=== PATIENT | male | born 1935 | race American Indian/Alaskan Native ===

== ENCOUNTER 2017-01-08 22:12 | Inpatient (IN) | payer MEDICARE ==
[2017-01-08] MEDS ORDERED: Absorbable Gelatin Sponge Size 12-7 ONE ×2 (22:59→23:01)
[2017-01-09] MEDS ORDERED: Sodium Chloride 0.9% 1,000 ML IV ONE ×2 (00:33→01:40)
[2017-01-09 00:42] LABS: BASO % 0.4 % (0.0-2.0); EOS % 0.2 % (0.0-4.0); HEMATOCRIT 22.1 % (35.0-51.0); LYMPH # 1.3 K/uL (1.0-4.3); LYMPH % 18.2 % (20.0-40.0); MEAN CORPUSCULAR HEMOGLOBIN 24.4 pg (27.0-31.0); MEAN CORPUSCULAR HGB CONC 31.6 g/dL (33.0-37.0); MEAN PLATELET VOLUME 8.9 fL (7.2-11.7); MONO # 0.7 K/uL (0.0-0.8); MONO % 10.2 % (0.0-10.0); RED CELL DISTRIBUTION WIDTH 19.1 % (11.5-14.5); WHITE BLOOD COUNT 7.3 K/uL (4.8-10.8)
[2017-01-09 00:49] LABS: INR 1.3
[2017-01-09 00:54] LABS: ALKALINE PHOSPHATASE 67 U/L (38-126); ALT/SGPT 91 U/L (21-72); AST/SGOT 75 U/L (17-59); BILIRUBIN,TOTAL 0.8 mg/dL (0.2-1.3); BLOOD UREA NITROGEN 14 mg/dL (9-20); CALCIUM 7.3 mg/dl (8.6-10.4); CARBON DIOXIDE 28 mmol/L (22-30); CHLORIDE 104 mmol/L (98-107); GFR AFRICAN-AMERICAN > 60; GLUCOSE,RANDOM 107 mg/dL (75-110); POTASSIUM 4.1 mmol/L (3.6-5.2); SODIUM 137 mmol/L (132-148); TOTAL PROTEIN 5.9 g/dL (6.3-8.3)
--- NOTE | 2017-01-09 01:26 | C.PDOC ---
History Of Present Illness 81 year old male presents to the ER after he fell asleep on a kitchen stool, fell off the stool and hit the corner of a cabinet suffering a laceration to the right scalp area. Patient reports he has been bleeding moderately at home for a few hours [employer] and was unable to control the bleeding which prompted ER visit. Denies dizziness, weakness, or headache. Time Seen by Provider: 01/08/17 22:31 Chief Complaint (Nursing): Abnormal Skin Integrity History Per: Patient History/Exam Limitations: no limitations Onset/Duration Of Symptoms: Hrs Current Symptoms Are (Timing): Still Present Location Of Injury: Right: Head Quality Of Symptoms: Other (Bleeding) Recent travel outside of the [place]: No Past Medical History Reviewed: Historical Data, Nursing Documentation, Vital Signs Vital Signs: Last Vital Signs Temp 98.1 F 01/08/17 22:24 Pulse 85 01/09/17 01:52 Resp 18 01/09/17 01:52 BP 96/50 L 01/09/17 01:52 Pulse Ox 98 01/09/17 02:33 - Medical History PMH: No Chronic Diseases Surgical History: No Surg Hx Family History: States: Unknown Family Hx - Social History Hx Alcohol Use: No Hx Substance Use: No - Immunization History Hx Tetanus Toxoid Vaccination: No Hx Influenza Vaccination: No Hx Pneumococcal Vaccination: No Review Of Systems Skin: Positive for: Other (Laceration) Neurological: Negative for: Weakness, Headache, Dizziness Physical Exam - Physical Exam Appears: Non-toxic, No Acute Distress Skin: Warm, Dry Head: Normacephalic, No Tenderness (Facial bone), Laceration (8.5cm V shaped to right parietal area), No Other (Hematoma) Eye(s): bilateral: Normal Inspection, PERRL, EOMI Nose: Normal Oral Mucosa: Moist Neck: Normal, No Midline Cervical Tenderness, No Paracervical Tenderness, Supple Chest: Symmetrical Cardiovascular: Rhythm Regular Respiratory: Normal Breath Sounds, No Rales, No Rhonchi Extremity: Normal ROM (x4) Extremity: Bilateral: Atraumatic Neurological/Psych: Oriented x3, Normal Speech, Normal Motor, Normal Sensation Gait: Steady (came in ambulatory with spouse) ED Course And Treatment - Laboratory Results Result Diagrams: 01/09/17 00:39 01/09/17 00:39 O2 Sat by Pulse Oximetry: 98 (Room air) Pulse Ox Interpretation: Normal - CT Scan/US CT Head Other Rad Studies (CT/US): Read By Radiologist, Radiology Report Reviewed CT/US Interpretation: EXAM: CT Head Without Intravenous Contrast. CLINICAL HISTORY: 81 years old, male; Injury or trauma; Fall; Initial encounter; Laceration; Consciousness not specified;. Without residual foreign body; Scalp ; Additional info: Scalp laceration, head trauma. TECHNIQUE: Axial computed tomography images of the head/brain without intravenous contrast. All CT scans at. this facility use one or more dose reduction techniques, viz.: automated exposure control; ma/kV. adjustment per patient size (including targeted exams where dose is matched to indication; i.e. head);. or iterative reconstruction technique. Coronal and sagittal reformatted images were created and reviewed. COMPARISON: No relevant prior studies available. FINDINGS: Brain: Mild cerebral volume loss and decrease in attenuation of the periventricular white matter likely. due to chronic microangiopathic disease. The brain otherwise with normal myers-white matter. differentiation, without acute intracranial hemorrhage, edema or mass effect. Midline shift: No midline shift is present. Ventricles: Unremarkable. No ventriculomegaly. Bones/joints: No calvarial fractures are visualized. Soft tissues: Right frontal parietal scalp soft tissue swelling and laceration with surgical repair clips. noted. Sinuses: Unremarkable as visualized. No acute sinusitis. Mastoid air cells: Unremarkable as visualized. No mastoid effusion. Orbits: The orbits are normal. There is no evidence of retrobulbar hemorrhage. IMPRESSION: Mild to moderate soft tissue injury noted to the patient's right parietal scalp. No acute intracranial findings are seen. Chronic appearing changes as described. Progress Note: CT head ordered, results are negative. Wound was irrigated and stapled x7, pressure dressing applied x4 with no hemostasis; patient became pale , diaphoretic. Patient initially declined blood work but after several failed attempts to stop the bleeding patient agreed to blood work. Patient started on IV fluids, vitals remain stable; blood results showed a hemoglobin of 7. Discussed the results with patient and explained the importance of a blood transfusion at this time, patient agrees and gave signed consent for transfusion. Patient has a Hx of prior transfusions with no adverse reactions. Abbie removed from wound and lidocaine with epi used to anesthesize wound which was sutured x 8 with 3.0 nylon with control of bleeding. Laceration - Laceration Repair Right parietal scalp Wound Length (In cm): 8.5 Description Of Wound: Irregular (V shaped) Wound Examination: Irrigated With Saline Wound Closure: Acton (then removed b/c of lack of bleeding control) Suture Technique And Material Used: Interrupted (x 8), Nylon (3.0 ) Wound Complexity: Intermediate (bacitracin and pressure dressing applied) Disposition - Disposition Disposition: HOSPITALIZED Disposition Time: 02:30 Condition: STABLE Forms: [facility] (Citizen Of [place]) - Clinical Impression Clinical Impression: Anemia, Scalp laceration, Head trauma - PA / DIRECTOR OF CONSERVATION / Resident Statement MD/DO has reviewed & agrees with the documentation as recorded. - Scribe Statement The provider has reviewed the documentation as recorded by the Scribe Jose Cooper All medical record entries made by the Reynaibkhang were at my direction and personally dictated by me. I have reviewed the chart and agree that the record accurately reflects my personal performance of the history, physical exam, medical decision making, and the department course for this patient. I have also personally directed, reviewed, and agree with the discharge instructions and disposition.
[2017-01-09] MEDS ORDERED: Lidocaine 2% w Epi 1:100,000 Inj IJ ONE (01:32)
[2017-01-09] MEDS ORDERED: Bacitracin 500 Units/gm Oint Foilpak UD ONE (01:52)
[2017-01-09] MEDS ORDERED: Vitamins A & D Oint UD Foilpak ONE (03:21)
[2017-01-09 04:56] LABS: ALB/GLOB RATIO 0.8 (1.0-2.1)
--- NOTE | 2017-01-09 05:02 | CP.PCM.HP ---
<Beth Gallo - Last Filed: 01/09/17 05:07> History of Present Illness - History of Present Illness History of Present Illness: CC: uncontrolled bleeding HPI: 81M with PMH CHF, Hep C with cirrhosis and esophageal varices, and valvular disease who presents to the ED for uncontrollable bleeding from a scalp laceration. Patient says he was sitting in his kitchen on a barstool around 7:00 PM when he fell asleep and fell off the barstool, hitting his head on the corner of a cabinet on the way down. Patient says he was alone when this happened and he woke up as he was falling and hitting his head. Patient says he did not lose consciousness after that and remembers everthing that happened, including hearing his head hit the cabinet. Patient says he thought he just scraped his head and the bleeding would stop if he held pressure on it but he was still bleeding by the time his got home later in the evening so they decided to come to the ED. Patient says he has never fallen before except once when his dog pulled him over on the leash. Patient says he thinks it was caused by his BP meds which make him feel tired. 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 He also notes a cough which he also attributes to his BP medication. Patient says he has a recent history of easy bruising. He says he started the Brilinta in April of this year after having a stent placed for abnormal findings on catheterization. He denies history of NH. Patient admits to recent colitis that resolved, frequency 2/2 lasix, and LE swelling 2/2 CHF. He denies fever, chills, headache, changes in vision and hearing, sore throat, chest pain, palpitations, dyspnea, abdominal pain, n/v/d/c , blood in urine or stool, LE pain, rashes, and sick contacts. 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 Present on Admission - Present on Admission Any Indicators Present on Admission: No Review of Systems - Review of Systems All systems: reviewed and no additional remarkable complaints except (as per HPI ) Past Patient History - Past Social History Smoking Status: Never Smoked - PSYCHIATRIC Hx Substance Use: No Meds Allergies/Adverse Reactions: Allergies Allergy/AdvReac Type Severity Reaction Status Date / Time No Known Allergies Allergy Verified 01/08/17 22:26 Physical Exam - Constitutional Appears: Non-toxic, No Acute Distress - Head Exam Additional comments: 10 cm "L" shaped laceration on the right parietal area, sutured dried blood on head and in nair from head lac - Eye Exam Eye Exam: EOMI, Normal appearance, PERRL. absent: Nystagmus Additional comments: pale conjunctiva - ENT Exam ENT Exam: Mucous Membranes Moist - Neck Exam Neck exam: Negative for: Lymphadenopathy, Tenderness - Respiratory Exam Respiratory Exam: Clear to Auscultation Bilateral, NORMAL BREATHING PATTERN. absent: Accessory Muscle Use, Rales, Rhonchi, Wheezes, Respiratory Distress - Cardiovascular Exam Cardiovascular Exam: RRR, +S1, +S2, Systolic Murmur (harsh, heard best at the left sternal border ). absent: Bradycardia, Tachycardia, Diastolic murmur - GI/Abdominal Exam GI & Abdominal Exam: Hernia (umbilical ), Normal Bowel Sounds, Soft. absent: Distended, Tenderness - Extremities Exam Extremities exam: Positive for: pedal edema (2+ pitting ). Negative for: calf tenderness - Neurological Exam Neurological exam: Alert, CN II-XII Intact, Oriented x3 - Psychiatric Exam Psychiatric exam: Normal Affect, Normal Mood - Skin Skin Exam: Dry, Normal Color, Warm Results - Vital Signs Recent Vital Signs: Last Vital Signs Temp 98.7 F 01/09/17 04:37 Pulse 93 H 01/09/17 04:37 Resp 18 01/09/17 04:37 BP 86/43 L 01/09/17 04:37 Pulse Ox 100 01/09/17 04:37 - Labs Result Diagrams: 01/09/17 00:39 01/09/17 00:39 Labs: Laboratory Results - last 24 hr 01/09/17 01/09/17 01/09/17 00:39 00:39 00:39 WBC 7.3 RBC 2.87 L Hgb 7.0 L Hct 22.1 L MCV 77.0 L MCH 24.4 L MCHC 31.6 L RDW 19.1 H Plt Count 148 MPV 8.9 Neut % (Auto) 71.0 Lymph % (Auto) 18.2 L Pinal % (Auto) 10.2 H Eos % (Auto) 0.2 Baso % (Auto) 0.4 Neut # 5.2 Lymph # 1.3 Pinal # 0.7 Eos # 0.0 Baso # 0.0 PT 14.5 H INR 1.3 APTT 33 Sodium 137 Potassium 4.1 Chloride 104 Carbon Dioxide 28 Anion Gap 9 L BUN 14 Creatinine 0.7 L Est GFR ( Amer) > 60 Est GFR (Non-Af Amer) > 60 Random Glucose 107 Calcium 7.3 L Total Bilirubin 0.8 AST 75 H ALT 91 H Alkaline Phosphatase 67 Total Protein 5.9 L Albumin 2.6 L Globulin 3.3 Albumin/Globulin Ratio 0.8 L Blood Type Blood Type Confirm Antibody Screen 01/09/17 01/09/17 01:17 01:36 WBC RBC Hgb Hct MCV MCH MCHC RDW Plt Count MPV Neut % (Auto) Lymph % (Auto) Pinal % (Auto) Eos % (Auto) Baso % (Auto) Neut # Lymph # Pinal # Eos # Baso # PT INR APTT Sodium Potassium Chloride Carbon Dioxide Anion Gap BUN Creatinine Est GFR ( Amer) Est GFR (Non-Af Amer) Random Glucose Calcium Total Bilirubin AST ALT Alkaline Phosphatase Total Protein Albumin Globulin Albumin/Globulin Ratio Blood Type A POSITIVE Blood Type Confirm A POSITIVE Antibody Screen Negative Assessment & Plan - Assessment and Plan (Free Text) Plan: Anemia * f/u iron level (pretransfusion) * Transfused 1 U PRBCs * f/u H&H in AM * Call gericare aide teacher about whether brilinta can be held or not Head Laceration * Head CT showed no acute bleed * sutured and bandaged * dressing changes PRN Hypotension * hold lasix for now until BP normalized History of CHF * f/u echo * f/u CXR * f/u EKG Prophylactic measures * protonix * c/i VTE ppx - anemia * c/i to SCDs - LE edema <Balwinder Hill P - Last Filed: 01/09/17 06:46> Results - Vital Signs Recent Vital Signs: Last Vital Signs Temp 98.9 F 01/09/17 06:20 Pulse 84 01/09/17 06:20 Resp 18 01/09/17 06:20 BP 120/61 01/09/17 06:20 Pulse Ox 100 01/09/17 06:20 - Labs Result Diagrams: 01/09/17 00:39 01/09/17 00:39 Labs: Laboratory Results - last 24 hr 01/09/17 01/09/17 01/09/17 00:39 00:39 00:39 WBC 7.3 RBC 2.87 L Hgb 7.0 L Hct 22.1 L MCV 77.0 L MCH 24.4 L MCHC 31.6 L RDW 19.1 H Plt Count 148 MPV 8.9 Neut % (Auto) 71.0 Lymph % (Auto) 18.2 L Pinal % (Auto) 10.2 H Eos % (Auto) 0.2 Baso % (Auto) 0.4 Neut # 5.2 Lymph # 1.3 Pinal # 0.7 Eos # 0.0 Baso # 0.0 PT 14.5 H INR 1.3 APTT 33 Sodium 137 Potassium 4.1 Chloride 104 Carbon Dioxide 28 Anion Gap 9 L BUN 14 Creatinine 0.7 L Est GFR ( Amer) > 60 Est GFR (Non-Af Amer) > 60 Random Glucose 107 Calcium 7.3 L Iron TIBC % Saturation Total Bilirubin 0.8 AST 75 H ALT 91 H Alkaline Phosphatase 67 Total Protein 5.9 L Albumin 2.6 L Globulin 3.4 Albumin/Globulin Ratio 0.8 L Blood Type Blood Type Confirm Antibody Screen 01/09/17 01/09/17 01/09/17 01:17 01:36 03:30 WBC RBC Hgb Hct MCV MCH MCHC RDW Plt Count MPV Neut % (Auto) Lymph % (Auto) Pinal % (Auto) Eos % (Auto) Baso % (Auto) Neut # Lymph # Pinal # Eos # Baso # PT INR APTT Sodium Potassium Chloride Carbon Dioxide Anion Gap BUN Creatinine Est GFR ( Amer) Est GFR (Non-Af Amer) Random Glucose Calcium Iron 15 L TIBC 396 % Saturation 4 L Total Bilirubin AST ALT Alkaline Phosphatase Total Protein Albumin Globulin Albumin/Globulin Ratio Blood Type A POSITIVE Blood Type Confirm A POSITIVE Antibody Screen Negative Attending/Attestation - Attestation I have personally seen and examined this patient.: Yes I have fully participated in the care of the patient.: Yes I have reviewed all pertinent clinical information: Yes Notes (Text): Assessment Fall without LOC, about 4inches L shaped laceration, sutured after initial wendi due to continuous bleeding/oozing hemostasis achieved, patient is on Brilianta and asa Cardiac stent in April 2016, done after evaluation for CHF, , didn't need surg, CHF improved as per the patient H/o hepc, esophageal varices again found in April 2016, didn't need rx of varices. Microcytic anemia, need to check trend of hemoglobin suspect slow loss will check iron indices, transfuion. Plan Baseline CXR, EKG, echo Transfuse PRBC Check with patient's gericare aide teacher, gastroentrologist, pmd, confirm type of stent , ability of hold brilianta if needed, if need reval for gi blood loss. See orders for detail.
[2017-01-09 06:13] LABS: IRON 15 ug/dL (49-181)
--- NOTE | 2017-01-09 08:30 | CT ---
PROCEDURE: CT HEAD WITHOUT CONTRAST. HISTORY: scalp laceration, head trauma COMPARISON: None available. TECHNIQUE: Axial computed tomography images were obtained through the head/brain without intravenous contrast. Radiation dose: Total exam DLP = 1005.02 mGy-cm. This CT exam was performed using one or more of the following dose reduction techniques: Automated exposure control, adjustment of the mA and/or kV according to patient size, and/or use of iterative reconstruction technique. FINDINGS: HEMORRHAGE: No intracranial hemorrhage. BRAIN: No mass effect or edema. Mild diffuse age-appropriate atrophy and mild periventricular white matter lucency consistent with chronic microvascular ischemic change. VENTRICLES: Unremarkable. No hydrocephalus. CALVARIUM: No fracture. Scalp laceration over right vertex. Surgical cutaneous wendi noted. PARANASAL SINUSES: Unremarkable as visualized. No significant inflammatory changes. MASTOID AIR CELLS: Unremarkable as visualized. No inflammatory changes. OTHER FINDINGS: None. IMPRESSION: No intracranial mass, hemorrhage or evidence of acute infarct. Scalp laceration of right vertex. Preliminary interpretation of this examination was reported by [facility] at 11:30 p.m. on 01/08/2017. There is concurrence of this report with the preliminary interpretation.
--- NOTE | 2017-01-09 09:10 | RAD ---
HISTORY: CHF COMPARISON: Not available FINDINGS: LUNGS: No active pulmonary disease. PLEURA: No significant pleural effusion identified, no pneumothorax apparent. CARDIOVASCULAR: Normal. OSSEOUS STRUCTURES: No significant abnormalities. VISUALIZED UPPER ABDOMEN: Normal. OTHER FINDINGS: None. IMPRESSION: No active disease.
[2017-01-09 11:46] LABS: BASO % 0.1 % (0.0-2.0); EOS % 0.6 % (0.0-4.0); HEMATOCRIT 17.7 % (35.0-51.0); LYMPH # 0.6 K/uL (1.0-4.3); LYMPH % 22.4 % (20.0-40.0); MEAN CORPUSCULAR HEMOGLOBIN 25.6 pg (27.0-31.0); MEAN CORPUSCULAR HGB CONC 32.3 g/dL (33.0-37.0); MEAN PLATELET VOLUME 8.8 fL (7.2-11.7); MONO # 0.3 K/uL (0.0-0.8); MONO % 13.6 % (0.0-10.0); RED CELL DISTRIBUTION WIDTH 19.1 % (11.5-14.5)
[2017-01-09 11:50] LABS: MEAN CELL VOLUME 79.1 fL (80.0-94.0); WHITE BLOOD COUNT 2.6 K/uL (4.8-10.8)
--- NOTE | 2017-01-09 15:55 | CP.PCM.PN ---
<Radha Weber - Last Filed: 01/09/17 15:52> Subjective - Date & Time of Evaluation Date of Evaluation: 01/09/17 Time of Evaluation: 10:00 - Subjective Subjective: Medicine Note for Hospitalist, Dr. Kidd's Service Patient was seen and examined at bedside. Patient reports he feels much better today. Denied any dizziness or fatigue. hemoglobin on admission was 7.0. Patient transfused 1 unit this morning, post CBC was 5.7. Patient will be transfused an additional 2 units today - total 3 units. Denied fever, chills, headache, chest pain, SOB, abdominal pain, n/v/d/c, or urinary symptoms. Objective - Vital Signs/Intake and Output Vital Signs (last 24 hours): Temp Pulse Resp BP Pulse Ox 97.3 F L 79 20 99/60 L 99 01/09/17 15:39 01/09/17 15:39 01/09/17 15:39 01/09/17 15:39 01/09/17 15:39 Intake and Output: 01/09/17 01/09/17 06:59 18:59 Intake Total 920 Balance 920 - Medications Medications: Current Medications Aspirin (Aspirin Chewable) 81 mg PO DAILY [facility] Last Admin: 01/09/17 10:06 Dose: 81 mg Folic Acid (Folic Acid) 1 mg PO DAILY [facility] Last Admin: 01/09/17 10:06 Dose: 1 mg Pantoprazole Sodium (Protonix Inj) 40 mg IVP DAILY [facility] Last Admin: 01/09/17 10:06 Dose: 40 mg Ticagrelor (Brilinta) 90 mg PO DAILY [facility] Last Admin: 01/09/17 10:24 Dose: 90 mg - Labs Labs: 01/09/17 11:34 01/09/17 00:39 PT 14.5 SECONDS (9.7-12.2) H 01/09/17 00:39 INR 1.3 01/09/17 00:39 APTT 33 SECONDS (21-34) 01/09/17 00:39 - Constitutional Appears: No Acute Distress - Head Exam Head Exam: NORMAL INSPECTION, NORMOCEPHALIC - Eye Exam Eye Exam: EOMI, PERRL Pupil Exam: NORMAL ACCOMODATION - ENT Exam ENT Exam: Mucous Membranes Moist, Normal Exam - Neck Exam Neck Exam: Normal Inspection - Respiratory Exam Respiratory Exam: Clear to Ausculation Bilateral, NORMAL BREATHING PATTERN. absent: Decreased Breath Sounds, Wheezes - Cardiovascular Exam Cardiovascular Exam: REGULAR RHYTHM, RRR - GI/Abdominal Exam GI & Abdominal Exam: Soft, Normal Bowel Sounds. absent: Distended, Tenderness - Extremities Exam Extremities Exam: Pedal Edema (+1 BL LE) - Neurological Exam Neurological Exam: Alert, Awake, Oriented x3 Assessment and Plan - Assessment and Plan (Free Text) Plan: Symptomatic Chronic Anemia Secondary to Iron Deficiency Anemia and Head Laceration Hemoglobin of 7 on admission, transfused 1 unit this morning. Post CBC 5.7. Will receive 2 more transfusions - total 3 today Anemia workup - iron deficiency Anemia - Started IV Ferrlicit F/U AM CBC, stool occult Laceration stapled and sutured. Bandaged applied. Dressing changes PRN Head CT- showed no acute bleed Hypotension held lasix for now until BP normalized Low 100/60 - will continue to monitor Receiving blood transfusions and IV Ferrlicit History of CAD Stent placed 04/2016 - records retrieved from [facility] - stent placed, patient discharged with ASA and Brilinta Both ASA and Brilinta held 2/2 symptomatic anemia History of CHF CXR- No active disease f/u ECHO History of Portal Hypertension and esophageal varices with no bleeding EGD and Colonoscopy performed 04/2016 prior to PCI placement Prophylactic measures protonix c/i VTE ppx - anemia c/i to SCDs - LE edema PCP: Jacob Pisano GI: Sedaret Cardio: Gus Hay Dr., DO,PGY-1 <Kishore Servin - Last Filed: 01/10/17 17:42> Objective - Vital Signs/Intake and Output Vital Signs (last 24 hours): Temp Pulse Resp BP Pulse Ox 97.6 F 72 20 123/64 96 01/10/17 15:19 01/10/17 15:19 01/10/17 15:19 01/10/17 15:19 01/10/17 15:19 Intake and Output: 01/10/17 01/10/17 06:59 18:59 Intake Total 325 Balance 325 - Medications Medications: Current Medications Aspirin (Aspirin Chewable) 81 mg PO DAILY [facility] Last Admin: 01/09/17 10:06 Dose: 81 mg Ferric Sodium Gluconate Complex (Ferrlecit) 125 mg IVPB DAILY [facility] Stop: 01/15/17 10:01 Last Admin: 01/10/17 10:22 Dose: 125 mg Folic Acid (Folic Acid) 1 mg PO DAILY [facility] Last Admin: 01/10/17 10:22 Dose: 1 mg Metoprolol Tartrate (Lopressor) 25 mg PO BID [facility] Pantoprazole Sodium (Protonix Inj) 40 mg IVP BID [facility] Phytonadione (Vitamin K Inj) 10 mg SC ONCE ONE Stop: 01/11/17 06:01 Sucralfate (Carafate Oral Susp) 1 gm PO [facility] IBAN Ticagrelor (Brilinta) 90 mg PO DAILY [facility] Last Admin: 01/09/17 10:24 Dose: 90 mg - Labs Labs: 01/10/17 16:52 01/10/17 07:32 PT 14.1 SECONDS (9.7-12.2) H 01/10/17 11:19 INR 1.2 01/10/17 11:19 APTT 31 SECONDS (21-34) 01/10/17 11:19 Attending/Attestation - Attestation I have personally seen and examined this patient.: Yes I have fully participated in the care of the patient.: Yes I have reviewed all pertinent clinical information, including history, physical exam and plan: Yes
[2017-01-09 21:47] LABS: BASO % 0.4 % (0.0-2.0); HEMATOCRIT 19.8 % (35.0-51.0); LYMPH # 0.8 K/uL (1.0-4.3); LYMPH % 22.8 % (20.0-40.0); MEAN CELL VOLUME 79.2 fL (80.0-94.0); MEAN CORPUSCULAR HEMOGLOBIN 25.2 pg (27.0-31.0); MEAN CORPUSCULAR HGB CONC 31.8 g/dL (33.0-37.0); MEAN PLATELET VOLUME 8.6 fL (7.2-11.7); MONO # 0.4 K/uL (0.0-0.8); MONO % 12.7 % (0.0-10.0); NRBC % 0.1 % (0.0-2.0); RED CELL DISTRIBUTION WIDTH 18.2 % (11.5-14.5); WHITE BLOOD COUNT 3.5 K/uL (4.8-10.8)
[2017-01-09 21:59] LABS: ALKALINE PHOSPHATASE 50 U/L (38-126); ALT/SGPT 73 U/L (21-72); AST/SGOT 64 U/L (17-59); BILIRUBIN,TOTAL 0.8 mg/dL (0.2-1.3); BLOOD UREA NITROGEN 14 mg/dL (9-20); CALCIUM 6.9 mg/dl (8.6-10.4); CARBON DIOXIDE 27 mmol/L (22-30); CHLORIDE 106 mmol/L (98-107); GFR AFRICAN-AMERICAN > 60; GLUCOSE,RANDOM 130 mg/dL (75-110); SODIUM 137 mmol/L (132-148); TOTAL PROTEIN 4.3 g/dL (6.3-8.3)
--- NOTE | 2017-01-09 23:12 | CARD ---
APPROVED REPORT EKG Measurement Heart [id number] <Conclusion> Normal sinus rhythm Nonspecific ST abnormality Prolonged QT Abnormal ECG
--- NOTE | 2017-01-10 07:19 | CP.PCM.PN ---
<Radha Weber - Last Filed: 01/10/17 13:22> Subjective - Date & Time of Evaluation Date of Evaluation: 01/10/17 Time of Evaluation: 10:00 - Subjective Subjective: Medicine Note for Hospitalist, Dr. Kidd's Service Patient was seen and examined at bedside. Patient has no acute complaints. He denied any hemoptysis and melena. Denied fever, chills, headache, chest pain, SOB, abdominal pain, n/v/d/c, or urinary symptoms. Objective - Vital Signs/Intake and Output Vital Signs (last 24 hours): Temp Pulse Resp BP Pulse Ox 97.9 F 82 20 119/70 98 01/09/17 23:40 01/10/17 01:00 01/09/17 23:40 01/09/17 23:40 01/09/17 23:40 Intake and Output: 01/10/17 01/10/17 06:59 18:59 Intake Total 325 Balance 325 - Medications Medications: Current Medications Aspirin (Aspirin Chewable) 81 mg PO DAILY [facility] Last Admin: 01/09/17 10:06 Dose: 81 mg Ferric Sodium Gluconate Complex (Ferrlecit) 125 mg IVPB DAILY [facility] Stop: 01/15/17 10:01 Folic Acid (Folic Acid) 1 mg PO DAILY [facility] Last Admin: 01/09/17 10:06 Dose: 1 mg Pantoprazole Sodium (Protonix Inj) 40 mg IVP DAILY [facility] Last Admin: 01/09/17 10:06 Dose: 40 mg Ticagrelor (Brilinta) 90 mg PO DAILY [facility] Last Admin: 01/09/17 10:24 Dose: 90 mg - Labs Labs: 01/09/17 21:40 01/09/17 21:40 PT 14.5 SECONDS (9.7-12.2) H 01/09/17 00:39 INR 1.3 01/09/17 00:39 APTT 33 SECONDS (21-34) 01/09/17 00:39 - Additional Findings Additional findings: - Constitutional Appears: No Acute Distress - Head Exam Head Exam: NORMAL INSPECTION, NORMOCEPHALIC - Eye Exam Eye Exam: EOMI, PERRL Pupil Exam: NORMAL ACCOMODATION - ENT Exam ENT Exam: Mucous Membranes Moist, Normal Exam - Neck Exam Neck Exam: Normal Inspection - Respiratory Exam Respiratory Exam: Clear to Ausculation Bilateral, NORMAL BREATHING PATTERN. absent: Decreased Breath Sounds, Wheezes - Cardiovascular Exam Cardiovascular Exam: REGULAR RHYTHM, RRR - GI/Abdominal Exam GI & Abdominal Exam: Soft, Normal Bowel Sounds. absent: Distended, Tenderness - Extremities Exam Extremities Exam: Pedal Edema (+1 BL LE) - Neurological Exam Neurological Exam: Alert, Awake, Oriented x3 Assessment and Plan - Assessment and Plan (Free Text) Plan: Symptomatic Chronic Anemia Secondary to Iron Deficiency Anemia and Head Laceration Laceration stapled and sutured. Bandaged applied. Dressing changes PRN Head CT- showed no acute bleed Hemoglobin of 7 on admission, transfused 1 unit this morning. Post CBC 5.7. Will receive 2 more transfusions - total 3 today Anemia workup - iron deficiency Anemia - Started IV Ferrlicit Stool occult - positive, GI Consulted - Dr. Byrnes - help appreciated - plan for EGD tomorrow - NPO past midnight - Vitamin K doses x 2 will be given F/U afternoon CBC - if need be will be transfused History of Portal Hypertension and esophageal varices with no bleeding EGD and Colonoscopy performed 04/2016 prior to PCI placement Beats of VTACH Pt had 25 beats of VTACH last night, ELISEO negative Cardiology consulted - Dr. Ortiz - help appreciated - recommended to continue with ASA and plavix after DC - patient is to follow up with his ironer machine from [facility] Started patient on Metoprolol 25mg PO BID (home dose is 50mg PO daily) Hypotension Starting to normalize-will continue to monitor Receiving blood transfusions and IV Ferrlicit History of CAD Stent placed 04/2016 - records retrieved from [facility] - stent placed, patient discharged with ASA and Brilinta Both ASA and Brilinta held 2/2 symptomatic anemia History of CHF CXR- No active disease f/u ECHO Prophylactic measures protonix IVP BID Currently on FLD c/i VTE ppx - BOTH HELD due to Anemia, + FOBT c/i to SCDs - LE edema PCP: Jacob Pisano GI: [place] Cardio: Gus Hay Dr., DO,PGY-1 <Kishore Servin - Last Filed: 01/10/17 17:43> Objective - Vital Signs/Intake and Output Vital Signs (last 24 hours): Temp Pulse Resp BP Pulse Ox 97.6 F 72 20 123/64 96 01/10/17 15:19 01/10/17 15:19 01/10/17 15:19 01/10/17 15:19 01/10/17 15:19 Intake and Output: 01/10/17 01/10/17 06:59 18:59 Intake Total 325 Balance 325 - Medications Medications: Current Medications Aspirin (Aspirin Chewable) 81 mg PO DAILY [facility] Last Admin: 01/09/17 10:06 Dose: 81 mg Ferric Sodium Gluconate Complex (Ferrlecit) 125 mg IVPB DAILY [facility] Stop: 01/15/17 10:01 Last Admin: 01/10/17 10:22 Dose: 125 mg Folic Acid (Folic Acid) 1 mg PO DAILY [facility] Last Admin: 01/10/17 10:22 Dose: 1 mg Metoprolol Tartrate (Lopressor) 25 mg PO BID [facility] Pantoprazole Sodium (Protonix Inj) 40 mg IVP BID [facility] Phytonadione (Vitamin K Inj) 10 mg SC ONCE ONE Stop: 01/11/17 06:01 Sucralfate (Carafate Oral Susp) 1 gm PO ACS [facility] Ticagrelor (Brilinta) 90 mg PO DAILY [facility] Last Admin: 01/09/17 10:24 Dose: 90 mg - Labs Labs: 01/10/17 16:52 01/10/17 07:32 PT 14.1 SECONDS (9.7-12.2) H 01/10/17 11:19 INR 1.2 01/10/17 11:19 APTT 31 SECONDS (21-34) 01/10/17 11:19 Attending/Attestation - Attestation I have personally seen and examined this patient.: Yes I have fully participated in the care of the patient.: Yes I have reviewed all pertinent clinical information, including history, physical exam and plan: Yes Notes (Text): seen and examined with the residnet plan discussed with the resident spoke to his ironer machine.His recommendation appreciated EGD tomorrow 01/10/17 17:42
[2017-01-10 07:32] LABS: RBC URINE < 1 /hpf (0-3); URINE BACTERIA OCC (<OCC); URINE BILIRUBIN NEGATIVE (NEGATIVE); URINE BLOOD NEGATIVE (NEGATIVE); URINE COLOR Yellow (YELLOW); URINE GLUCOSE (UA) NORMAL (Normal); URINE KETONE NEGATIVE (NEGATIVE); URINE LEUKOCYTE ESTERASE 3+ Leu/uL (Negative); URINE PROTEIN NEGATIVE (NEGATIVE); WBC URINE 29 /hpf (0-5)
[2017-01-10 07:55] LABS: BASO % 0.6 % (0.0-2.0); EOS % 0.9 % (0.0-4.0); HEMATOCRIT 22.4 % (35.0-51.0); LYMPH # 0.8 K/uL (1.0-4.3); LYMPH % 20.8 % (20.0-40.0); MEAN CELL VOLUME 79.5 fL (80.0-94.0); MEAN CORPUSCULAR HEMOGLOBIN 25.3 pg (27.0-31.0); MEAN CORPUSCULAR HGB CONC 31.8 g/dL (33.0-37.0); MEAN PLATELET VOLUME 8.6 fL (7.2-11.7); MONO # 0.5 K/uL (0.0-0.8); MONO % 13.9 % (0.0-10.0); NRBC % 0.1 % (0.0-2.0); RED CELL DISTRIBUTION WIDTH 17.7 % (11.5-14.5); WHITE BLOOD COUNT 3.6 K/uL (4.8-10.8)
[2017-01-10 08:36] LABS: ALKALINE PHOSPHATASE 52 U/L (38-126); ALT/SGPT 75 U/L (21-72); AST/SGOT 66 U/L (17-59); BILIRUBIN,TOTAL 1.1 mg/dL (0.2-1.3); BLOOD UREA NITROGEN 14 mg/dL (9-20); CALCIUM 6.8 mg/dl (8.6-10.4); CARBON DIOXIDE 26 mmol/L (22-30); CHLORIDE 108 mmol/L (98-107); GFR AFRICAN-AMERICAN > 60; GLUCOSE,RANDOM 83 mg/dL (75-110); MAGNESIUM 1.6 mg/dL (1.6-2.3); PHOSPHOROUS 2.6 mg/dL (2.5-4.5); SODIUM 136 mmol/L (132-148); TOTAL PROTEIN 4.3 g/dL (6.3-8.3)
[2017-01-10] MEDS: Ferric Sodium Gluconat Complex 62.5 mg/5 ml Vial IVPB SCH (10:22)
[2017-01-10] MEDS ORDERED: Phytonadione 10 mg/ml Inj (Adult) SC ONE ×2 (10:45→12:30)
[2017-01-10 11:47] LABS: INR 1.2
[2017-01-10 12:16] LABS: CARCINOEMBRYONIC ANTIGEN 2.2 ng/mL (0-3.0)
[2017-01-10 12:20] LABS: CA 19-9 16.7 U/mL (0-37)
[2017-01-10 16:59] LABS: HEMATOCRIT 22.6 % (35.0-51.0); MEAN CORPUSCULAR HEMOGLOBIN 25.9 pg (27.0-31.0); MEAN CORPUSCULAR HGB CONC 32.8 g/dL (33.0-37.0); MEAN PLATELET VOLUME 8.3 fL (7.2-11.7); RED CELL DISTRIBUTION WIDTH 18.3 % (11.5-14.5); WHITE BLOOD COUNT 3.6 K/uL (4.8-10.8)
--- NOTE | 2017-01-10 21:45 | CARD ---
APPROVED REPORT EKG Measurement Heart [id number] <Conclusion> Sinus rhythm with occasional premature ventricular complexes Otherwise normal ECG
[2017-01-10] MEDS: Sucralfate 1 gm/10 ml Oral Susp UD PO SCH (22:00)
--- NOTE | 2017-01-10 23:13 | CARD ---
APPROVED REPORT EXAM: Two-dimensional and M-mode echocardiogram with Doppler and color Doppler. Other Information Quality : GoodRhythm : INDICATION Congestive Heart Failure HEP.C WITH CIRRHOSIS 2D DIMENSIONS IVSd1.1 (0.7-1.1cm)LVDd5.3 (3.9-5.9cm) LVOT Diameter2.7 (1.8-2.4cm)PWd1.2 (0.7-1.1cm) LVDs3.0 (2.5-4.0cm)FS (%) 42.5 % LVEF (%)73.2 (>50%) M-Mode DIMENSIONS Left Atrium (MM)4.95 (2.5-4.0cm)Aortic Root3.85 (2.2-3.7cm) Aortic Cusp Exc.1.37 (1.5-2.0cm) Aortic Valve AoV Peak Cmddicub768.3cm/sAoV VTI91.3cmAO Peak GR.76mmHg LVOT Peak Fkdukxfg38.6cm/sLVOT VTI21.06cmAO Mean GR.48mmHg CAMILLA (VMAX)1.74zj6XGS (VTI)1.33cm2 Mitral Valve MV E Fgneoixa34.0cm/sMV A Wmpdlfqt90.4cm/sE/A ratio1.0 TDI E/Lateral E'0.0E/Medial E'0.0 Tricuspid Valve TR Peak Pzlauhkl208as/sTR Peak Gr.78aaEqYNFD62abSg LEFT VENTRICLE The left ventricle is normal size. There is borderline to mild concentric left ventricular hypertrophy. Left ventricle systolic function is normal. The Ejection Fraction is >70%. There is normal LV segmental wall motion. The left ventricular diastolic function is normal. RIGHT VENTRICLE The right ventricle is normal size. There is normal right ventricular wall thickness. The right ventricular systolic function is normal. ATRIA The left atrium is moderately dilated. The right atrium size is normal. The interatrial septum is intact with no evidence for an atrial septal defect. AORTIC VALVE The aortic valve is mildly calcified and displays decreased opening. There is trace aortic regurgitation. There is moderate valvular aortic stenosis. Calculated aortic valve area is 1.33 cm2 with maximum pressure gradient of 76 mmHg and mean pressure gradient of 48 mmHg. MITRAL VALVE The mitral valve is normal in structure. There is no evidence of mitral valve prolapse. There is no mitral valve stenosis. Mitral regurgitation is mild. TRICUSPID VALVE The tricuspid valve is normal in structure. There is moderate tricuspid regurgitation. Right ventricular systolic pressure is estimated at 47 mmHg. There is mild-moderate pulmonary hypertension. PULMONIC VALVE The pulmonic valve is not well visualized. There is trace pulmonic valvular regurgitation. GREAT VESSELS The aortic root is normal in size. PERICARDIAL EFFUSION There is no significant pericardial effusion. <Conclusion> Left ventricle systolic function is normal. The Ejection Fraction is >70%. Hypertensive heart disease. There is trace aortic regurgitation. There is moderate valvular aortic stenosis. There is moderate tricuspid regurgitation. There is mild-moderate pulmonary hypertension. There is trace pulmonic valvular regurgitation.
--- NOTE | 2017-01-11 00:54 | CON ---
DATE: 01/09/2017 HISTORY OF PRESENT ILLNESS: I was called for a GI consultation by the admitting medical team. The patient is seen and fully examined for GI consultation on 01/09/2017 as requested by the admitting medical staff. The entire chart is reviewed including but not limited to the most recent lab and radiology study results, current and the previous medication list, current and the previous medical events. This is a 81-year-old male who was admitted to the hospital through the emergency room after he fell from a small chair on to the ground with head laceration and bleeding at that time, but no loss of consciousness. No reported dizziness or headache, but mild generalized fatigue. After being admitted to the hospital, the patient was found to have hemoglobin initially of 7.0 with hematocrit 22.1 with low creatinine, but normal the rest of the SMA-7. The patient also had CAT scan of the head, report is seen. Due to his reported bleeding from the head laceration, the patient had suture x8, which controlled his head bleeding. PAST MEDICAL HISTORY: Not significant. FAMILY HISTORY: Unknown. SOCIAL HISTORY: Denied any recent history of cigarette smoking or alcohol intake. ALLERGY TO MEDICATION: UNCLEAR. PHYSICAL EXAMINATION: GENERAL: A 81 years old male, appeared to be for me awake, alert, oriented indicating that he had recently, a few months ago upper and lower endoscopy in another medical institution indicative of possible esophageal and gastric varices. Colonoscopy results are unknown clearly to the patient. VITAL SIGNS: The patient is afebrile with pulse of 82, respiratory rate 20 to 22 with blood pressure 100/52. HEENT: Showed pale dry mucous membrane. Nonicteric sclerae. Head laceration is covered with clean dressing. LYMPH NODES: No lymphadenitis or lymphadenopathy. LUNGS: Few scattered crepitation. Decreased air entry at bases. HEART: Positive S1 and S2. ABDOMEN: Soft. Bowel sounds are present with slight generalized tenderness. No mass or organomegaly. No rebound tenderness or guarding. RECTAL: Examination, the patient refused. EXTREMITIES: With mild lower extremity edematous changes. No clubbing or cyanosis. NEUROLOGIC: No reported new neurological deficits, sensory or motor. LABORATORY DATA: It has to be mentioned that the stool for occult blood was mentioned initially to be positive. IMPRESSION: 1. Anemia. 2. Gastrointestinal blood loss, upper versus lower. To rule out bleeding through gastric ulcer, less likely. 3. Known history of recent head laceration post fall. 4. Anemia, no symptoms. SUGGESTION: 1. Agree with your plan. 2. Blood transfusion to keep hemoglobin around 10 gm percent. 3. PT and PTT, correct any underlying electrolyte imbalance. 4. Ultrasound reports. 5. Cancer markers. 6. Endoscopic evaluation of upper GI tract. 7. Further recommendation to follow. Thank you for letting me to participate in your patient's case and management. Christiano Gutierrez MD
--- NOTE | 2017-01-11 02:37 | CON ---
DATE: CARDIOLOGY CONSULT: REQUESTED BY: The Hospitalist group. Admitted to room 553 B. HISTORY OF PRESENT ILLNESS: Requested to see this 81-year-old male due to a nonsustained ventricular tachycardia, history of coronary stent deployed in 04/2016 with a drug eluting stent, admitted with profound chronic anemia with an acute laceration after an accidental fall. Hemoglobin quite low, in the range of about 7 g. This nice gentleman sustained an accidental fall in his house while sitting in a stool in the kitchen, hit the head at the countertop, sustained a laceration. He was apparently nodding at the counter and he just fell. He denies any dizziness, any palpitations, chest pain or any other problem. This was an accident. He put pressure in the laceration, thinking it was a small scratch, and it continued to bleed, came to the emergency room where he was attended properly. However, he was found to be a slightly hypotensive with profound anemia, which is chronic in nature. This, I discussed the situation last night with the resident that called me. The cardiology situation gets complicated with a history of congestive heart failure; hypertension, controlled; however, he underwent a cardiac catheterization sometimes in 04/2016 at [facility], and a coronary stent was deployed. We do not know what and where in terms of the coronary tree. We do know that he has been on dual-antiplatelet therapy ever since, using low dose aspirin 81 mg as well as ticagrelor 90 mg twice a day, which began in April. By my count, it is around nine months duration so far. After stabilization and he received several units of blood, he appears in totally stable condition at this point in time. No further bleeding at the scalp area. Last night, the reason they called me was because he had a short bout of ventricular tachycardia of about 20 beats or so. He was totally asymptomatic. Once in a while this morning, we see a PVC here, but nothing remarkable. Reviewing the records from [place] disclosed at that time, he had significant anemia, and he underwent multiple investigations including upper endoscopy and colonoscopy, nothing was found at that time, and with a background of cirrhosis of the liver, hepatitis C, previous history of chronic alcoholism, etc. etc, he was placed on dual antiplatelet therapy as mentioned according to the guidelines with the low-dose aspirin as well as the ticagrelor (Brilinta) 90 mg twice a day. By my count, he has been already in this dual antiplatelet therapy for about 9 months. At present, he denies any dizziness, chest pain, shortness of breath. He is actually resting quite comfortable. He feels relatively well, and he told me of the history of congestive heart failure etc., as well as multiple medications. Also mentioned, he has stopped "drinking" years ago. MEDICATIONS: Had been reviewed and discussed with the house staff personnel here on the telemetry floor 5000. PHYSICAL EXAMINATION: GENERAL: At this point in time, reveals a very nice elderly gentleman in no distress whatsoever. VITAL SIGNS: Relatively stable. Blood pressure is within systolic range, continuous cardiac monitoring is sinus with very rare PVC, afebrile. SKIN: Shows some atopic dermatitis of both lower extremities; however, very little trace of edema. HEAD, EARS, NOSE, AND THROAT: Basically unremarkable. NECK: Supple. Jugular veins not distended even at this point in time. LUNGS: Relatively clear. HEART: Sounds normal in intensity, regular, with systolic murmur on the left sternal border; nothing remarkable at this point. ABDOMEN: Slightly globular, obese. I do not detect any evidence of ascites. CENTRAL NERVOUS SYSTEM: Unremarkable. COMPLEMENTARY DATA: EKG; basically normal, sinus rhythm, nothing significant. Troponin is negative. Chest x-ray, no acute failure. Significant anemia with some microcytic hypochromic indices indicating chronic blood loss. Latest hemoglobin after the blood transfusion of 7.1. Previous hemoglobin while in [place], longtime back this year, in April, also indicated similar blood count. Liver enzymes, mildly elevated. PT/INR, borderline elevated at 1.3. Hepatitis C is reactive, is positive. ASSESSMENT: Arteriosclerotic heart disease, status post coronary stent deployed in 04/2016 with a drug-eluting stent; severe hypertensive heart disease; congestive heart failure, most likely diastolic more than systolic; cirrhosis of the liver by history; chronic GI blood loss; severe anemia. Conclusion suggesting a difficult case because of the need in one hand to use dual antiplatelet therapy due to the drug-eluting stent. On the other hand, very high risk of bleeding, especially with the combination of ticagrelor and aspirin, which has superior efficacy to decrease stent thrombosis when compared to aspirin and clopidogrel; however high incidence of bleeding. I strongly feel that there is a chronic blood loss over the several months, and at this point in time, he appears stable. The main problem is continued antiplatelet therapy. Since he has had at least 9 months of dual antiplatelet therapy according to my calculations, certain controlled trials comparing short-term versus intermediate-term and long-term use of dual antiplatelet therapy with aspirin and either clopidogrel or ticagrelor, at this point in time, per the Society of Cardiology as well as [place] [employer], the duration of 6 to 12 months is more than appropriate to start looking now in to see if they are lowering this duration of dual antiplatelet therapy between 3 to 6 months. 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 In the meantime, continue with the beta ryan, metoprolol 25 to 50 mg once or twice a day and especially due to the heart failure and cardiac arrhythmias, which most likely was treated by ____. Bird Ortiz MD
[2017-01-11] MEDS ORDERED: Phytonadione 10 mg/ml Inj (Adult) SC ONE ×2 (06:00→10:15)
--- NOTE | 2017-01-11 06:47 | PN ---
DATE: LOCATION: [facility], bed B. SUBJECTIVE: This 81-year-old male seen initially for GI consultation on 01/09/2017, reexamined again today with significant clinical changes, positive blood transfusion due to drop of his hemoglobin and hematocrit. The entire chart is reviewed including, but not limited to the most recent lab and radiology study results, current and previous medication list, current and previous medical events. Case is to be discussed with medical staff in the floor. The patient still has lacerations in the and the head CAT scan showed no acute bleeding. The stool reported to be guaiac positive. Most recent lab results showed hemoglobin of 7.1, hematocrit 22.7 went low, white blood cell 3.6, and low platelet of 93 with low indices, highly suggestive of hypochromic macrocytic anemia with reported albumin low at 2.1, total protein low at 4.3, with increased AST and ALT. Initial chest x-ray reported seen indicative no active disease. PHYSICAL EXAMINATION: GENERAL: A 81-year-old male. VITAL SIGNS: Afebrile, with pulse of 80, respiratory rate 20 to 22, blood pressure of 120/70. HEENT: Showed pale, dry mucous membranes. Nonicteric sclerae. LUNGS: Few scattered crepitations. Decreased air entry at bases. HEART: Positive S1 and S2. ABDOMEN: Soft. Bowel sounds are present with slight generalized tenderness. No mass or organomegaly. No rebound tenderness or guarding. NEUROLOGIC: No reported new neurological deficit, sensory or motor. EXTREMITIES: Without significant edema, clubbing, or cyanosis. IMPRESSION: 1. Hypochromic macrocytic anemia with recently reported pancytopenia. His anemia could be secondary to iron deficiency, but stool positive for occult blood indicative of gastrointestinal blood loss, upper versus lower. 2. Rule out occult gastrointestinal malignancy. 3. Head laceration with clean dressing. 4. Recently reported episodes of ventricular tachycardia, biometrics consultant on the case. 5. Known history of congestive heart failure with coronary artery disease with hypertension. SUGGESTION: 1. Agree with your plan. 2. Cancer marker. 3. Endoscopic evaluation of the GI tract when the patient is more stable clinically and after correcting his coagulopathy as well as his pancytopenia. Case to be discussed with the biometrics consultant on the case. Christiano Gutierrez MD [facility] # [id number]
[2017-01-11] MEDS: Sucralfate 1 gm/10 ml Oral Susp UD PO SCH ×2 (07:32→22:31)
[2017-01-11 08:03] LABS: BASO % 0.3 % (0.0-2.0); EOS % 1.4 % (0.0-4.0); HEMATOCRIT 23.3 % (35.0-51.0); LYMPH % 30.6 % (20.0-40.0); MEAN CELL VOLUME 79.4 fL (80.0-94.0); MEAN CORPUSCULAR HGB CONC 32.7 g/dL (33.0-37.0); MEAN PLATELET VOLUME 8.8 fL (7.2-11.7); MONO # 0.5 K/uL (0.0-0.8); MONO % 15.3 % (0.0-10.0); NRBC % 0.1 % (0.0-2.0); RED CELL DISTRIBUTION WIDTH 17.7 % (11.5-14.5); WHITE BLOOD COUNT 3.3 K/uL (4.8-10.8)
[2017-01-11 08:18] LABS: ALKALINE PHOSPHATASE 55 U/L (38-126); ALT/SGPT 72 U/L (21-72); AST/SGOT 62 U/L (17-59); BILIRUBIN,TOTAL 1.1 mg/dL (0.2-1.3); BLOOD UREA NITROGEN 11 mg/dL (9-20); CALCIUM 7.2 mg/dl (8.6-10.4); CARBON DIOXIDE 27 mmol/L (22-30); CHLORIDE 108 mmol/L (98-107); GFR AFRICAN-AMERICAN > 60; GLUCOSE,RANDOM 80 mg/dL (75-110); MAGNESIUM 1.5 mg/dL (1.6-2.3); PHOSPHOROUS 3.3 mg/dL (2.5-4.5); POTASSIUM 3.8 mmol/L (3.6-5.2); SODIUM 138 mmol/L (132-148); TOTAL PROTEIN 4.6 g/dL (6.3-8.3)
[2017-01-11] MEDS ORDERED: Propofol 10 mg/ml Inj (20 ML) ONE (09:45)
[2017-01-11] MEDS ORDERED: Etomidate 20 mg/10ml Inj IV ONE (10:03)
[2017-01-11] MEDS ORDERED: Phenylephrine 10 mg/ml Inj ONE (10:03)
[2017-01-11 10:12] LABS: HCV RNA QN PCR IU/ML 969199 IU/mL (<15); HCV RNA QN PCR LOG IU/ML 5.99 Log IU/mL (<1.18)
--- NOTE | 2017-01-11 10:42 | CP.PCM.PN ---
<Radha Weber - Last Filed: 01/11/17 10:39> Subjective - Date & Time of Evaluation Date of Evaluation: 01/11/17 Time of Evaluation: 10:00 - Subjective Subjective: Medicine Note for Hospitalist, Dr. Kidd's Service Patient was seen and examined at bedside. Patient has no acute complaints. He denied any hemoptysis and melena. Plan for EGD today and Colonoscopy tomorrow. Denied fever, chills, headache, chest pain, SOB, abdominal pain, n/v/d/c, or urinary symptoms. Objective - Vital Signs/Intake and Output Vital Signs (last 24 hours): Temp Pulse Resp BP Pulse Ox 97.2 F L 80 17 134/70 96 01/11/17 10:17 01/11/17 10:17 01/11/17 10:17 01/11/17 10:17 01/11/17 10:17 Intake and Output: 01/11/17 01/11/17 06:59 18:59 Intake Total 150 Balance 150 - Medications Medications: Current Medications Aspirin (Aspirin Chewable) 81 mg PO DAILY [facility] Last Admin: 01/09/17 10:06 Dose: 81 mg Bisacodyl (Dulcolax) 10 mg PO ONCE ONE Stop: 01/11/17 17:01 Ferric Sodium Gluconate Complex (Ferrlecit) 125 mg IVPB DAILY [facility] Stop: 01/15/17 10:01 Last Admin: 01/10/17 10:22 Dose: 125 mg Folic Acid (Folic Acid) 1 mg PO DAILY [facility] Last Admin: 01/10/17 10:22 Dose: 1 mg Furosemide (Lasix) 40 mg PO DAILY [facility] Magnesium Oxide (Mag-Ox) 400 mg PO BID [facility] Stop: 01/12/17 10:01 Metoclopramide HCl (Reglan) 5 mg IVP Q6 [facility] Metoprolol Tartrate (Lopressor) 25 mg PO BID [facility] Last Admin: 01/10/17 17:59 Dose: 25 mg Pantoprazole Sodium (Protonix Inj) 40 mg IVP BID [facility] Last Admin: 01/10/17 17:59 Dose: 40 mg Polyethylene Glycol/Electrolytes (Golytely) 4,000 ml PO ONCE ONE Stop: 01/11/17 11:46 Sucralfate (Carafate Oral Susp) 1 gm PO ACBHS [facility] Last Admin: 01/11/17 07:32 Dose: Not Given Ticagrelor (Brilinta) 90 mg PO DAILY IBAN Last Admin: 01/09/17 10:24 Dose: 90 mg - Labs Labs: 01/11/17 07:27 01/11/17 07:27 PT 14.1 SECONDS (9.7-12.2) H 01/10/17 11:19 INR 1.2 01/10/17 11:19 APTT 31 SECONDS (21-34) 01/10/17 11:19 - Additional Findings Additional findings: - Constitutional Appears: No Acute Distress - Head Exam Head Exam: NORMAL INSPECTION, NORMOCEPHALIC - Eye Exam Eye Exam: EOMI, PERRL Pupil Exam: NORMAL ACCOMODATION - ENT Exam ENT Exam: Mucous Membranes Moist, Normal Exam - Neck Exam Neck Exam: Normal Inspection - Respiratory Exam Respiratory Exam: Clear to Ausculation Bilateral, NORMAL BREATHING PATTERN. absent: Decreased Breath Sounds, Wheezes - Cardiovascular Exam Cardiovascular Exam: REGULAR RHYTHM, RRR - GI/Abdominal Exam GI & Abdominal Exam: Soft, Normal Bowel Sounds. absent: Distended, Tenderness - Extremities Exam Extremities Exam: Pedal Edema (+1 BL LE) - Neurological Exam Neurological Exam: Alert, Awake, Oriented x3 Assessment and Plan - Assessment and Plan (Free Text) Plan: Symptomatic Chronic Anemia Secondary to Iron Deficiency Anemia and Head Laceration GI Consulted - Dr. Byrnes Laceration stapled and sutured. Bandaged applied. Dressing changes PRN Head CT- showed no acute bleed Hemoglobin of 7 on admission, received 3 units - hemoglobin stable at 7.4 Anemia workup - iron deficiency Anemia - Started IV Ferrlicit Stool occult - positive History of Portal Hypertension and esophageal varices with no bleeding EGD and Colonoscopy performed 04/2016 prior to PCI placement EGD 01/11/17 - findings: LA Grade B reflux Esophagitis, smiall hiatial hernia, Erythematous mucosa in stomach - biopsied. Patient is to use Sucralfate 1 gram PO QID x 8 weeks - F/U with Fitz in 5 weeks Plan for Colonoscopy tomorrow - NPO past midnight Beats of VTACH Pt had 25 beats of VTACH last night, ELISEO negative Cardiology consulted - Dr. Ortiz - help appreciated - recommended to continue with ASA and plavix after DC - patient is to follow up with his payroll benefits administrator from [facility] Started patient on Metoprolol 25mg PO BID (home dose is 50mg PO daily) Hypotension Starting to normalize-will continue to monitor Receiving blood transfusions and IV Ferrlicit History of CAD Stent placed 04/2016 - records retrieved from [facility] - stent placed, patient discharged with ASA and Brilinta Both ASA and Brilinta held 2/2 symptomatic anemia History of CHF CXR- No active disease Resumed lasix 40mg PO daily Started patient on Metoprolol 25mg PO BID (home dose is 50mg PO daily) ECHO- LVEF 70% - will follow up with personal payroll benefits administrator as outpatient Prophylactic measures protonix IVP daily c/i VTE ppx - BOTH HELD due to Anemia, + FOBT c/i to SCDs - LE edema PCP: Jacob Pisano GI: Rafaelareyuli Cardio: Lindsey Kidd, Gus TEMPLE,PGY-1 <Kishore Servin - Last Filed: 01/11/17 17:44> Objective - Vital Signs/Intake and Output Vital Signs (last 24 hours): Temp Pulse Resp BP Pulse Ox 97.3 F L 66 20 144/74 97 01/11/17 17:15 01/11/17 17:15 01/11/17 17:15 01/11/17 17:15 01/11/17 17:15 Intake and Output: 01/11/17 01/11/17 06:59 18:59 Intake Total 650 Balance 650 - Medications Medications: Current Medications Aspirin (Aspirin Chewable) 81 mg PO DAILY [facility] Last Admin: 01/09/17 10:06 Dose: 81 mg Ferric Sodium Gluconate Complex (Ferrlecit) 125 mg IVPB DAILY [facility] Stop: 01/15/17 10:01 Last Admin: 01/11/17 11:16 Dose: 125 mg Folic Acid (Folic Acid) 1 mg PO DAILY [facility] Last Admin: 01/11/17 11:17 Dose: 1 mg Furosemide (Lasix) 40 mg PO DAILY [facility] Last Admin: 01/11/17 11:17 Dose: 40 mg Magnesium Oxide (Mag-Ox) 400 mg PO BID [facility] Stop: 01/12/17 10:01 Last Admin: 01/11/17 17:13 Dose: 400 mg Metoclopramide HCl (Reglan) 5 mg IVP Q6 [facility] Last Admin: 01/11/17 17:13 Dose: 5 mg Metoprolol Tartrate (Lopressor) 25 mg PO BID [facility] Last Admin: 01/11/17 17:13 Dose: 25 mg Pantoprazole Sodium (Protonix Inj) 40 mg IVP DAILY [facility] Sucralfate (Carafate Oral Susp) 1 gm PO ACBHS [facility] Last Admin: 01/11/17 07:32 Dose: Not Given Ticagrelor (Brilinta) 90 mg PO DAILY [facility] Last Admin: 01/09/17 10:24 Dose: 90 mg - Labs Labs: 01/11/17 07:27 01/11/17 07:27 PT 14.1 SECONDS (9.7-12.2) H 01/10/17 11:19 INR 1.2 01/10/17 11:19 APTT 31 SECONDS (21-34) 01/10/17 11:19 Attending/Attestation - Attestation I have personally seen and examined this patient.: Yes I have fully participated in the care of the patient.: Yes I have reviewed all pertinent clinical information, including history, physical exam and plan: Yes Notes (Text): Patient was seen and examined d/w Fire Crew Worker.His cardiac stent is in April 2016.We will d/c home on only Asprins/p EGD,going for colonoscopy tomorrow I agree with the residents documentation d/w pt about the plan and primary care f/u to remove his scalp sutures
[2017-01-11] MEDS: Ferric Sodium Gluconat Complex 62.5 mg/5 ml Vial IVPB SCH (11:16)
[2017-01-11] MEDS: Magnesium Oxide 400 mg Tab UD PO SCH ×2 (11:18→17:13)
[2017-01-11] MEDS ORDERED: Peg-Electrolyte Oral Soln 4L (Golytely) PO ONE (11:45)
[2017-01-11] MEDS ORDERED: Bisacodyl 5mg EC Tab PO ONE (17:00)
--- NOTE | 2017-01-12 06:46 | PN ---
DATE: LOCATION: Room 653 D, [address]. SUBJECTIVE: Patient sitting at the bedside, feeling well, had upper endoscopy earlier, no complications. Spoke with the physicians as well with the patient and no active bleeding found, so etc., none, but no bleeding. He is scheduled to undergo a colonoscopy tomorrow. From the cardiopulmonary viewpoint, he remains totally stable, no active bleeding identified, the scalp laceration is healing properly as I was told. He feels well. No dizziness. No chest pain. No shortness of breath. PHYSICAL EXAMINATION: Alert, oriented. No evidence of any cardiac decompensation at this point in time. Telemetry remains benign. Discussed the situation with Dr. Kidd, the hospitalist of record as well as with Dr. Núñez and at this point in time, if there is no evidence anywhere of an active bleeding at some place, then from the cardiological viewpoint, due to the drug-eluting stent infected around 9 months ago, guidelines called for continue a low-dose aspirin and here it is 81 mg, obviously with gastric protection by PPIs, etc. At this point in time, no need to have dual-antiplatelet therapy and he has been over 9 months as I mentioned yesterday and he has some evidence of some blood loss, significant anemia plus all the comorbidities significant anyway. All the medications, which will include obviously the statin as well as antihypertensive medication, etc. I looked at the echocardiogram actually and his left ventricular function and systolic function appears normal. Patient to be discharged per the hospitalist. Please do not hesitate to call me if you have any questions and referred him back to his sergeant of officers, Dr. Portillo in [place]. Bird Ortiz MD
[2017-01-12 07:35] LABS: BASO % 0.6 % (0.0-2.0); EOS % 1.6 % (0.0-4.0); HEMATOCRIT 22.8 % (35.0-51.0); LYMPH # 0.7 K/uL (1.0-4.3); MEAN CELL VOLUME 80.5 fL (80.0-94.0); MEAN CORPUSCULAR HEMOGLOBIN 26.5 pg (27.0-31.0); MEAN CORPUSCULAR HGB CONC 32.9 g/dL (33.0-37.0); MEAN PLATELET VOLUME 8.7 fL (7.2-11.7); MONO # 0.4 K/uL (0.0-0.8); MONO % 14.2 % (0.0-10.0); NRBC % 0.1 % (0.0-2.0); RED CELL DISTRIBUTION WIDTH 17.8 % (11.5-14.5); WHITE BLOOD COUNT 2.9 K/uL (4.8-10.8)
[2017-01-12] MEDS: Sucralfate 1 gm/10 ml Oral Susp UD PO SCH (07:38)
[2017-01-12 08:13] LABS: ALKALINE PHOSPHATASE 54 U/L (38-126); ALT/SGPT 73 U/L (21-72); AST/SGOT 63 U/L (17-59); BILIRUBIN,TOTAL 1.2 mg/dL (0.2-1.3); BLOOD UREA NITROGEN 9 mg/dL (9-20); CALCIUM 7.2 mg/dl (8.6-10.4); CARBON DIOXIDE 28 mmol/L (22-30); CHLORIDE 106 mmol/L (98-107); GFR AFRICAN-AMERICAN > 60; GLUCOSE,RANDOM 78 mg/dL (75-110); MAGNESIUM 1.5 mg/dL (1.6-2.3); PHOSPHOROUS 3.4 mg/dL (2.5-4.5); POTASSIUM 3.6 mmol/L (3.6-5.2); SODIUM 137 mmol/L (132-148); TOTAL PROTEIN 4.5 g/dL (6.3-8.3)
[2017-01-12] MEDS: Ferric Sodium Gluconat Complex 62.5 mg/5 ml Vial IVPB SCH (09:53)
--- NOTE | 2017-01-12 10:49 | CP.PCM.DIS ---
<Radha Weber - Last Filed: 01/12/17 12:26> Provider - Provider Date of Admission: 01/09/17 02:48 Attending physician: Balwinder Hill MD Time Spent in preparation of Discharge (in minutes): 55 Hospital Course - Lab Results Lab Results: Most Recent Lab Values WBC 2.9 K/uL (4.8-10.8) L 01/12/17 07:07 RBC 2.83 Mil/uL (4.40-5.90) L 01/12/17 07:07 Hgb 7.5 g/dL (12.0-18.0) L 01/12/17 07:07 Hct 22.8 % (35.0-51.0) L 01/12/17 07:07 MCV 80.5 fL (80.0-94.0) 01/12/17 07:07 MCH 26.5 pg (27.0-31.0) L 01/12/17 07:07 MCHC 32.9 g/dL (33.0-37.0) L 01/12/17 07:07 RDW 17.8 % (11.5-14.5) H 01/12/17 07:07 Plt Count 103 K/uL (130-400) L 01/12/17 07:07 MPV 8.7 fL (7.2-11.7) 01/12/17 07:07 Neut % (Auto) 60.6 % (50.0-75.0) 01/12/17 07:07 Lymph % (Auto) 23.0 % (20.0-40.0) 01/12/17 07:07 Dickenson % (Auto) 14.2 % (0.0-10.0) H 01/12/17 07:07 Eos % (Auto) 1.6 % (0.0-4.0) 01/12/17 07:07 Baso % (Auto) 0.6 % (0.0-2.0) 01/12/17 07:07 Neut # 1.8 K/uL (1.8-7.0) 01/12/17 07:07 Lymph # 0.7 K/uL (1.0-4.3) L 01/12/17 07:07 Dickenson # 0.4 K/uL (0.0-0.8) 01/12/17 07:07 Eos # 0.0 K/uL (0.0-0.7) 01/12/17 07:07 Baso # 0.0 K/uL (0.0-0.2) 01/12/17 07:07 Differential Comment 01/09/17 11:34 PT 14.1 SECONDS (9.7-12.2) H 01/10/17 11:19 INR 1.2 01/10/17 11:19 APTT 31 SECONDS (21-34) 01/10/17 11:19 Sodium 137 mmol/L (132-148) 01/12/17 07:07 Potassium 3.6 mmol/L (3.6-5.2) 01/12/17 07:07 Chloride 106 mmol/L (98-107) 01/12/17 07:07 Carbon Dioxide 28 mmol/L (22-30) 01/12/17 07:07 Anion Gap 7 (10-20) L 01/12/17 07:07 BUN 9 mg/dL (9-20) 01/12/17 07:07 Creatinine 0.7 mg/dL (0.8-1.5) L 01/12/17 07:07 Est GFR ( Amer) > 60 01/12/17 07:07 Est GFR (Non-Af Amer) > 60 01/12/17 07:07 Random Glucose 78 mg/dL (75-110) 01/12/17 07:07 Calcium 7.2 mg/dl (8.6-10.4) L 01/12/17 07:07 Phosphorus 3.4 mg/dL (2.5-4.5) 01/12/17 07:07 Magnesium 1.5 mg/dL (1.6-2.3) L 01/12/17 07:07 Iron 15 ug/dL (49-181) L 01/09/17 03:30 TIBC 396 ug/dL (250-450) 01/09/17 03:30 % Saturation 4 (20-55) L 01/09/17 03:30 Total Bilirubin 1.2 mg/dL (0.2-1.3) 01/12/17 07:07 AST 63 U/L (17-59) H 01/12/17 07:07 ALT 73 U/L (21-72) H 01/12/17 07:07 Alkaline Phosphatase 54 U/L (38-126) 01/12/17 07:07 Ammonia 29 umol/L (9-33) 01/09/17 11:34 Total Creatine Kinase 135 U/L (55-170) 01/09/17 21:40 CK-MB (Mass) 3.54 ng/mL (0.0-3.38) H 01/09/17 21:40 Troponin I 0.0380 ng/mL (0.00-0.120) 01/09/17 21:40 Total Protein 4.5 g/dL (6.3-8.3) L 01/12/17 07:07 Albumin 2.3 g/dL (3.5-5.0) L 01/12/17 07:07 Globulin 2.3 gm/dL (2.2-3.9) 01/12/17 07:07 Albumin/Globulin Ratio 1.0 (1.0-2.1) 01/12/17 07:07 Alpha Fetoprotein 8.3 ng/mL (0.0-7.5) H 01/10/17 11:19 Carcinoembryonic Ag 2.2 ng/mL (0-3.0) 01/10/17 11:19 CA 19-9 Antigen 16.7 U/mL (0-37) 01/10/17 11:19 Urine Color Yellow (YELLOW) 01/10/17 07:05 Urine Clarity Hazy (Clear) 01/10/17 07:05 Urine pH 5.0 (5.0-8.0) 01/10/17 07:05 Ur Specific [place] 1.016 (1.003-1.030) 01/10/17 07:05 Urine Protein Negative mg/dL (NEGATIVE) 01/10/17 07:05 Urine Glucose (UA) Normal mg/dL (Normal) 01/10/17 07:05 Urine Ketones Negative mg/dL (NEGATIVE) 01/10/17 07:05 Urine Blood Negative (NEGATIVE) 01/10/17 07:05 Urine Nitrate Negative (NEGATIVE) 01/10/17 07:05 Urine Bilirubin Negative (NEGATIVE) 01/10/17 07:05 Urine Urobilinogen 4.0 mg/dL (0.2-1.0) 01/10/17 07:05 Ur Leukocyte Esterase 3+ Theron/uL (Negative) H 01/10/17 07:05 Urine WBC (Auto) 29 /hpf (0-5) H 01/10/17 07:05 Urine RBC (Auto) < 1 /hpf (0-3) 01/10/17 07:05 Urine Bacteria Occ (<OCC) H 01/10/17 07:05 Stool Occult Blood Positive (NEGATIVE) H 01/10/17 02:51 Urine Opiates Screen Negative (NEGATIVE) 01/09/17 09:19 Urine Methadone Screen Negative (NEGATIVE) 01/09/17 09:19 Ur Barbiturates Screen Negative (NEGATIVE) 01/09/17 09:19 Ur Phencyclidine Scrn Negative (NEGATIVE) 01/09/17 09:19 Ur Amphetamines Screen Negative (NEGATIVE) 01/09/17 09:19 U Benzodiazepines Scrn Negative (NEGATIVE) 01/09/17 09:19 U Oth Cocaine Metabols Negative (NEGATIVE) 01/09/17 09:19 U Cannabinoids Screen Negative (NEGATIVE) 01/09/17 09:19 Hepatitis A IgM Ab Negative (NEGATIVE) 01/10/17 11:19 Hep Bs Antigen Negative (NEGATIVE) 01/10/17 11:19 Hep B Core IgM Ab Negative (NEGATIVE) 01/10/17 11:19 Hepatitis C Antibody Reactive (NEGATIVE) 01/10/17 11:19 HCV RNA (PCR) IUs/ml 907372 IU/mL (<15) H 01/09/17 11:34 HCV RNA PCR log IUs/ml 5.99 Log IU/mL (<1.18) H 01/09/17 11:34 Blood Type A POSITIVE 01/09/17 01:17 Blood Type Confirm A POSITIVE 01/09/17 01:36 Antibody Screen Negative 01/09/17 01:17 - Hospital Course Hospital Course: Upon Admission: CC: uncontrolled bleeding HPI: 81M with PMH CHF, Hep C with cirrhosis and esophageal varices, and valvular disease who presents to the ED for uncontrollable bleeding from a scalp laceration. Patient says he was sitting in his kitchen on a barstool around 7:00 PM when he fell asleep and fell off the barstool, hitting his head on the corner of a cabinet on the way down. Patient says he was alone when this happened and he woke up as he was falling and hitting his head. Patient says he did not lose consciousness after that and remembers everthing that happened, including hearing his head hit the cabinet. Patient says he thought he just scraped his head and the bleeding would stop if he held pressure on it but he was still bleeding by the time his got home later in the evening so they decided to come to the ED. Patient says he has never fallen before except once when his dog pulled him over on the leash. Patient says he thinks it was caused by his BP meds which make him feel tired. Patient admits to some new onset dizziness while trying to clinical pharmacy coordinator the ED. He also notes a cough which he also attributes to his BP medication. Patient says he has a recent history of easy bruising. He says he started the Brilinta in April of this year after having a stent placed for abnormal findings on catheterization. He denies history of CT. Patient admits to recent colitis that resolved, frequency 2/2 lasix, and LE swelling 2/2 CHF. He denies fever, chills, headache, changes in vision and hearing, sore throat, chest pain, palpitations, dyspnea, abdominal pain, n/v/d/c , blood in urine or stool, LE pain, rashes, and sick contacts. 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 Medical records from [facility] were retrieved and it was noted patient has history of chronic anemia. He was symptomatic then and underwent EGD and Colonoscopy showing portal hypertension and nonbleeding esophageal varices. Patient was found to have CAD, a SAKSHI was placed he was DC with ASA and 6 month brillanta. During this admission patient received 3 units of PRBCs to regain his hemoglobin at baseline of 7-8. He was seen by GI, and underwent EGD and Colonoscopy - LA Grade B reflux Esophagitis, smiall hiatial hernia, Erythematous mucosa in stomach - biopsied and nonbleeding internal and external hemorrhoids. Patient is to follow up with his PMD, Lineman A [employer], and with Dr. Byrnes. This is a brief summary of the patient's hospital course. Please review the EMR for full record. Discharge Exam - Head Exam Head Exam: NORMAL INSPECTION, NORMOCEPHALIC Discharge Plan - Discharge Medications Prescriptions: Aspirin 81 mg PO DAILY #30 tab.chew Cyanocobalamin (Vitamin B-12) [Vitamin B-12] 1,000 mcg PO DAILY #30 capsule Folic Acid 1 mg PO DAILY #30 tab Furosemide [Lasix] 40 mg PO DAILY #30 tab Hydrocortisone/Pramoxine [Analpram Hc 2.5%-1% Lotion] 59 ml TP BID #1 tub Metoprolol Tartrate [Lopressor] 50 mg PO DAILY #30 tab Metronidazole [Flagyl] 500 mg PO TID #21 tab Pantoprazole Sodium [Protonix] 40 mg PO DAILY #30 ect Potassium Chloride [K-Dur 20] 20 meq PO DAILY #30 tab Pyridoxine HCl (Vitamin B6) [Vitamin B-6] 25 mg PO DAILY #30 tablet Sucralfate [Carafate Oral Susp] 1 gm PO ACBHS 30 Days udc - Follow Up Plan Condition: STABLE Disposition: HOME/ ROUTINE Instructions: Heart Failure (DC), Heart Failure (GEN), Laceration (DC), Iron Rich Diet (DC), Iron Rich Diet (GEN), Anemia (DC), Anemia (GEN) Additional Instructions: You are to continue the following medications listed on you discharge papers. Please only take aspirin, no more brillanta. You are to follow up with the anatomy professor, Dr. Byrnes for the results of the biopsy from the endoscopy and the colonoscopy. Continue to take the sulcrafate for 8 weeks and protonix for 1 month to help with the inflammation of your esophagus. Please have a repeat colonoscopy in 10 years. He also recommended you take Analpram HC cream apply externally twice a day for 8 weeks and take flagyl 500mg by mouth 3 times a day for 7 days. Please follow up with your Primary medical doctor- for the removal of the sutures on your scalp within 1 week and for a routine follow up. Please follow up with your geospatial information scientist from [place] within 1 week. Please follow up with Dr. Byrnes for the results of your biopsies in 4-6 weeks. Please return to the ED if your symptoms worsen or return. Referrals: Christiano Byrnes [Staff Provider] - Bird Ortiz MD [Staff Provider] - Jacob Pisano, ELIZABET, BAR TURNER [Advanced Practice Nurse] - 1 Week <Kishore Servin - Last Filed: 01/12/17 17:41> Provider - Provider Date of Admission: 01/09/17 02:48 Attending physician: Balwinder Hill MD Hospital Course - Lab Results Lab Results: Most Recent Lab Values WBC 2.9 K/uL (4.8-10.8) L 01/12/17 07:07 RBC 2.83 Mil/uL (4.40-5.90) L 01/12/17 07:07 Hgb 7.5 g/dL (12.0-18.0) L 01/12/17 07:07 Hct 22.8 % (35.0-51.0) L 01/12/17 07:07 MCV 80.5 fL (80.0-94.0) 01/12/17 07:07 MCH 26.5 pg (27.0-31.0) L 01/12/17 07:07 MCHC 32.9 g/dL (33.0-37.0) L 01/12/17 07:07 RDW 17.8 % (11.5-14.5) H 01/12/17 07:07 Plt Count 103 K/uL (130-400) L 01/12/17 07:07 MPV 8.7 fL (7.2-11.7) 01/12/17 07:07 Neut % (Auto) 60.6 % (50.0-75.0) 01/12/17 07:07 Lymph % (Auto) 23.0 % (20.0-40.0) 01/12/17 07:07 Dickenson % (Auto) 14.2 % (0.0-10.0) H 01/12/17 07:07 Eos % (Auto) 1.6 % (0.0-4.0) 01/12/17 07:07 Baso % (Auto) 0.6 % (0.0-2.0) 01/12/17 07:07 Neut # 1.8 K/uL (1.8-7.0) 01/12/17 07:07 Lymph # 0.7 K/uL (1.0-4.3) L 01/12/17 07:07 Dickenson # 0.4 K/uL (0.0-0.8) 01/12/17 07:07 Eos # 0.0 K/uL (0.0-0.7) 01/12/17 07:07 Baso # 0.0 K/uL (0.0-0.2) 01/12/17 07:07 Differential Comment 01/09/17 11:34 PT 14.1 SECONDS (9.7-12.2) H 01/10/17 11:19 INR 1.2 01/10/17 11:19 APTT 31 SECONDS (21-34) 01/10/17 11:19 Sodium 137 mmol/L (132-148) 01/12/17 07:07 Potassium 3.6 mmol/L (3.6-5.2) 01/12/17 07:07 Chloride 106 mmol/L (98-107) 01/12/17 07:07 Carbon Dioxide 28 mmol/L (22-30) 01/12/17 07:07 Anion Gap 7 (10-20) L 01/12/17 07:07 BUN 9 mg/dL (9-20) 01/12/17 07:07 Creatinine 0.7 mg/dL (0.8-1.5) L 01/12/17 07:07 Est GFR ( Amer) > 60 01/12/17 07:07 Est GFR (Non-Af Amer) > 60 01/12/17 07:07 Random Glucose 78 mg/dL (75-110) 01/12/17 07:07 Calcium 7.2 mg/dl (8.6-10.4) L 01/12/17 07:07 Phosphorus 3.4 mg/dL (2.5-4.5) 01/12/17 07:07 Magnesium 1.5 mg/dL (1.6-2.3) L 01/12/17 07:07 Iron 15 ug/dL (49-181) L 01/09/17 03:30 TIBC 396 ug/dL (250-450) 01/09/17 03:30 % Saturation 4 (20-55) L 01/09/17 03:30 Total Bilirubin 1.2 mg/dL (0.2-1.3) 01/12/17 07:07 AST 63 U/L (17-59) H 01/12/17 07:07 ALT 73 U/L (21-72) H 01/12/17 07:07 Alkaline Phosphatase 54 U/L (38-126) 01/12/17 07:07 Ammonia 29 umol/L (9-33) 01/09/17 11:34 Total Creatine Kinase 135 U/L (55-170) 01/09/17 21:40 CK-MB (Mass) 3.54 ng/mL (0.0-3.38) H 01/09/17 21:40 Troponin I 0.0380 ng/mL (0.00-0.120) 01/09/17 21:40 Total Protein 4.5 g/dL (6.3-8.3) L 01/12/17 07:07 Albumin 2.3 g/dL (3.5-5.0) L 01/12/17 07:07 Globulin 2.3 gm/dL (2.2-3.9) 01/12/17 07:07 Albumin/Globulin Ratio 1.0 (1.0-2.1) 01/12/17 07:07 Alpha Fetoprotein 8.3 ng/mL (0.0-7.5) H 01/10/17 11:19 Carcinoembryonic Ag 2.2 ng/mL (0-3.0) 01/10/17 11:19 CA 19-9 Antigen 16.7 U/mL (0-37) 01/10/17 11:19 Urine Color Yellow (YELLOW) 01/10/17 07:05 Urine Clarity Hazy (Clear) 01/10/17 07:05 Urine pH 5.0 (5.0-8.0) 01/10/17 07:05 Ur Specific [place] 1.016 (1.003-1.030) 01/10/17 07:05 Urine Protein Negative mg/dL (NEGATIVE) 01/10/17 07:05 Urine Glucose (UA) Normal mg/dL (Normal) 01/10/17 07:05 Urine Ketones Negative mg/dL (NEGATIVE) 01/10/17 07:05 Urine Blood Negative (NEGATIVE) 01/10/17 07:05 Urine Nitrate Negative (NEGATIVE) 01/10/17 07:05 Urine Bilirubin Negative (NEGATIVE) 01/10/17 07:05 Urine Urobilinogen 4.0 mg/dL (0.2-1.0) 01/10/17 07:05 Ur Leukocyte Esterase 3+ Theron/uL (Negative) H 01/10/17 07:05 Urine WBC (Auto) 29 /hpf (0-5) H 01/10/17 07:05 Urine RBC (Auto) < 1 /hpf (0-3) 01/10/17 07:05 Urine Bacteria Occ (<OCC) H 01/10/17 07:05 Stool Occult Blood Positive (NEGATIVE) H 01/10/17 02:51 Urine Opiates Screen Negative (NEGATIVE) 01/09/17 09:19 Urine Methadone Screen Negative (NEGATIVE) 01/09/17 09:19 Ur Barbiturates Screen Negative (NEGATIVE) 01/09/17 09:19 Ur Phencyclidine Scrn Negative (NEGATIVE) 01/09/17 09:19 Ur Amphetamines Screen Negative (NEGATIVE) 01/09/17 09:19 U Benzodiazepines Scrn Negative (NEGATIVE) 01/09/17 09:19 U Oth Cocaine Metabols Negative (NEGATIVE) 01/09/17 09:19 U Cannabinoids Screen Negative (NEGATIVE) 01/09/17 09:19 Hepatitis A IgM Ab Negative (NEGATIVE) 01/10/17 11:19 Hep Bs Antigen Negative (NEGATIVE) 01/10/17 11:19 Hep B Core IgM Ab Negative (NEGATIVE) 01/10/17 11:19 Hepatitis C Antibody Reactive (NEGATIVE) 01/10/17 11:19 HCV RNA (PCR) IUs/ml 377496 IU/mL (<15) H 01/09/17 11:34 HCV RNA PCR log IUs/ml 5.99 Log IU/mL (<1.18) H 01/09/17 11:34 Blood Type A POSITIVE 01/09/17 01:17 Blood Type Confirm A POSITIVE 01/09/17 01:36 Antibody Screen Negative 01/09/17 01:17 Attending/Attestation - Attestation I have personally seen and examined this patient.: Yes I have fully participated in the care of the patient.: Yes I have reviewed all pertinent clinical information, including history, physical exam and plan: Yes Notes (Text): Patient was seen and examined Discussed about discharge plan.D/W Dr Ortiz ,off [facility] He will follow his geospatial information scientist He is aske to see his primary care for scalp wendi removal I agree with the resident's documentation of assessment and the plan 01/12/17 17:30
[2017-01-12] MEDS ORDERED: Lidocaine Hydrochloride 5 ML INJ ONE (11:35)
[2017-01-12] MEDS ORDERED: Propofol 10 mg/ml Inj (20 ML) ONE (11:35)
[2017-01-12] MEDS ORDERED: Lactated Ringer's 500 ML IV ONE (11:38)
[2017-01-12] MEDS: Lactated Ringer's 500 ML IV ONE ×2 (11:38→11:52)
[2017-01-12] MEDS ORDERED: Vancomycin 125 MG/5 ML SOLN (ORAL/RECTAL) PO ONE (12:45)
[2017-01-12] MEDS ORDERED: Belladonna-Phenobarbital PO ONE (13:00)
[2017-01-12] MEDS: Magnesium Oxide 400 mg Tab UD PO SCH (13:56)
[2017-01-12 15:22] VITALS: PULSE 65; RESP 20; TEMP 98; O2SAT 96
[2017-01-12 18:00] VITALS: BP 122/78
== END 2017-01-12 19:59 | disposition home or self-care (01) | DRG 580 ==
LOC: C.ER 22:12 → C.9E 01-09 02:48 → C.5S 01-09 06:47
PROVIDERS: ADMIT Internal Medicine; ATTEND Internal Medicine
PROC: 0JQ00ZZ Repair Scalp Subcutaneous Tissue and Fascia, Open Approach (ICD-10-PCS; 2017-01-09)
PROC: 0DB68ZX Excision of Stomach, Via Natural or Artificial Opening Endoscopic, Diagnostic (ICD-10-PCS; principal; 2017-01-11 09:42)
PROC: 0DBM8ZX Excision of Descending Colon, Via Natural or Artificial Opening Endoscopic, Diagnostic (ICD-10-PCS; 2017-01-12)
DX: S01.01XA Laceration without foreign body of scalp, initial encounter (principal); I47.2 Ventricular tachycardia; I11.0 Hypertensive heart disease with heart failure; I50.42 Chronic combined systolic (congestive) and diastolic (congestive) heart failure; K74.60 Unspecified cirrhosis of liver; W07.XXXA Fall from chair, initial encounter; B19.20 Unspecified viral hepatitis C without hepatic coma; K21.0 Gastro-esophageal reflux disease with esophagitis; K64.4 Residual hemorrhoidal skin tags; W22.09XA Striking against other stationary object, initial encounter; K64.8 Other hemorrhoids; D50.9 Iron deficiency anemia, unspecified; I25.10 Atherosclerotic heart disease of native coronary artery without angina pectoris; Z95.5 Presence of coronary angioplasty implant and graft; K58.9 Irritable bowel syndrome, unspecified; K44.9 Diaphragmatic hernia without obstruction or gangrene; Y92.000 Kitchen of unspecified non-institutional (private) residence as the place of occurrence of the external cause